=== PATIENT | male | born 1990 | race African-American/Black ===

== ENCOUNTER 2023-07-29 20:47 | Emergency (ER) | payer SELFPAY ==
[2023-07-29] MEDS ORDERED: Acetaminophen 500 MG TAB ONE (21:02)
== END 2023-07-29 22:34 | disposition home or self-care (01) ==
LOC: ERS 20:47
DX: S93.402A Sprain of unspecified ligament of left ankle, initial encounter (principal); F17.220 Nicotine dependence, chewing tobacco, uncomplicated; V80.010A Animal-rider injured by fall from or being thrown from horse in noncollision accident, initial encounter